=== PATIENT | female | born 1975 | race Hispanic/Latino ===

== ENCOUNTER 2025-04-28 21:45 | Emergency (ER) | payer OTHER ==
[~2025-04-28] VITALS: Ht 157.5 cm; Wt 73.9 kg
[2025-04-28] MEDS: CYCLOBENZAPRINE HCL 10 MG TABLET PO ONE (22:56)
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
[2025-04-29] MEDS ORDERED: CYCL10TA16 PO (01:03)
[2025-04-29] MEDS ORDERED: IBUP-1492 PO (01:03)
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
[2025-04-29 01:07] VITALS: BP 158/78; PULSE 82; RESP 16; TEMP 98.2; O2SAT 99
--- NOTE | 2025-04-29 09:56 | EKG ---
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
== END 2025-04-29 01:13 | disposition home or self-care (01) ==
LOC: EDH 21:45
DX: R07.89 Other chest pain (principal); R07.81 Pleurodynia; J45.909 Unspecified asthma, uncomplicated; V89.2XXA Person injured in unspecified motor-vehicle accident, traffic, initial encounter; Y93.I9 Activity, other involving external motion; Y92.488 Other paved roadways as the place of occurrence of the external cause; Y99.8 Other external cause status
CPT/HCPCS: 71101; 71250; 74176; 81025; 93005; 99284; 99285